=== PATIENT | male | born 1970 | race Caucasian/White ===

== ENCOUNTER 2022-04-05 16:05 | Outpatient (CLI) | payer OTHER, SELFPAY ==
[2022-04-05 09:03] LABS: Albumin* 4.8 g/dL (3.3-5.0); Chloride* 102 mmol/L (96-114)
[2022-04-05 09:04] LABS: Potassium* 4.6 mmol/L (3.6-5.1); Sodium* 139 mmol/L (135-149)
[2022-04-05 09:06] LABS: Aspartate Amino Transferase* 32 U/L (12-35); Bilirubin Total* 1.7 mg/dL (0.1-1.5); Blood Urea Nitrogen* 18 mg/dL (7-30); Carbon Dioxide* 30 mmol/L (20-32); Cholesterol* 160 mg/dL (90-199); Creatinine* 1.1 mg/dL (0.5-1.5); Estimated Glomerular Filt Rate 81 ml/min; Total Protein* 7.6 g/dL (6.0-8.3)
[2022-04-05 09:07] LABS: Alanine Aminotransferase* 38 U/L (4-50); Alkaline Phosphatase* 61 U/L (40-150); Calcium* 9.7 mg/dL (8.4-10.6); Glucose* 109 mg/dL (60-115); HDL Cholesterol* 40 mg/dL (>=40); LDL Cholesterol Calculated 96 mg/dL (<100); Triglycerides* 119 mg/dL (40-149)
[2022-04-05 09:34] LABS: PSA Screen* 1.58 ng/mL (0.10-4.00)
== END 2022-04-05 16:06 | disposition home or self-care (01) ==
PROVIDERS: PCP Internal Medicine; Visit Provider Internal Medicine
DX: Z00.00 Encounter for general adult medical examination without abnormal findings (principal); E78.5 Hyperlipidemia, unspecified; F41.9 Anxiety disorder, unspecified; Z13.1 Encounter for screening for diabetes mellitus; Z12.5 Encounter for screening for malignant neoplasm of prostate
CPT/HCPCS: 80053; 80061; 84153

== ENCOUNTER 2023-04-03 07:38 | Outpatient (CLI) | payer OTHER, SELFPAY | END 2023-04-03 07:39 | disposition home or self-care (01) | LOC: NFLDREF 04-04 08:23 | PROVIDERS: PCP Internal Medicine; Referring Provider Internal Medicine; Visit Provider Internal Medicine | DX: Z00.00 Encounter for general adult medical examination without abnormal findings (principal); E78.5 Hyperlipidemia, unspecified; F32.A Depression, unspecified; Z13.9 Encounter for screening, unspecified; Z12.5 Encounter for screening for malignant neoplasm of prostate | CPT/HCPCS: 80053; 80061; 84153 ==

== ENCOUNTER 2023-04-08 16:23 | Outpatient (CLI) | payer OTHER, SELFPAY | END 2023-04-08 16:24 | disposition home or self-care (01) | PROVIDERS: PCP Internal Medicine; Visit Provider Internal Medicine | DX: Z00.00 Encounter for general adult medical examination without abnormal findings (principal); R68.82 Decreased libido; F32.A Depression, unspecified | CPT/HCPCS: 84403; 84443 ==

== ENCOUNTER 2024-04-14 08:37 | Outpatient (CLI) | payer OTHER, SELFPAY | END 2024-04-14 08:38 | disposition home or self-care (01) | PROVIDERS: PCP Internal Medicine; Visit Provider Internal Medicine | DX: Z00.00 Encounter for general adult medical examination without abnormal findings (principal); E78.5 Hyperlipidemia, unspecified; N52.9 Male erectile dysfunction, unspecified; Z12.5 Encounter for screening for malignant neoplasm of prostate; Z13.9 Encounter for screening, unspecified | CPT/HCPCS: 80053; 80061; G0103 ==

== ENCOUNTER 2025-03-25 07:57 | Outpatient (CLI) | payer OTHER, SELFPAY ==
--- NOTE | 2025-03-25 09:15 | P.ANES_ITS ---
Anesthesia Charges Start Date/Time Anesthesia Start Date: 03/25/25 Anesthesia Start Time: 08:34 Stop Date/Time Anesthesia Stop Date: 03/25/25 Anesthesia Stop Time: 09:11 Coding CPT Codes CPT Codes: SONYA LWR INTST NDSC NOS - [id number] ([id number]) P2 - PATIENT W/MILD SYST DISEASE, P1 - NORMAL HEALTHY PATIENT, QK - PUBLIC TRANSIT BUS DRIVER 2-4 CNCRNT ANENoah PROC
--- NOTE | 2025-03-25 09:15 | W.ANESCHARGE ---
Anesthesia Charges Start Date/Time Anesthesia Start Date: 03/25/25 Anesthesia Start Time: 08:34 Stop Date/Time Anesthesia Stop Date: 03/25/25 Anesthesia Stop Time: 09:11 Coding CPT Codes CPT Codes: SONYA LWR INTST NDSC NOS - [id number] ([id number]) P2 - PATIENT W/MILD SYST DISEASE, P1 - NORMAL HEALTHY PATIENT, QK - SOCK MENDER 2-4 CNCRNT ANENoah PROC
--- NOTE | 2025-03-25 10:32 | P.ANES_ITS ---
Anesthesia Charges Start Date/Time Anesthesia Start Date: 03/25/25 Anesthesia Start Time: 08:34 Stop Date/Time Anesthesia Stop Date: 03/25/25 Anesthesia Stop Time: 09:11 Coding CPT Codes CPT Codes: SONYA LWR INTST NDSC NOS - [id number] ([id number]) P2 - PATIENT W/MILD SYST DISEASE, QK - TOWER HOIST OPERATOR 2-4 CNCRNT ANES PROC, QX - COAL YARD SUPERVISOR SVC W/ MD MED DIRECTION
--- NOTE | 2025-03-25 10:32 | W.ANESCHARGE ---
Anesthesia Charges Start Date/Time Anesthesia Start Date: 03/25/25 Anesthesia Start Time: 08:34 Stop Date/Time Anesthesia Stop Date: 03/25/25 Anesthesia Stop Time: 09:11 Coding CPT Codes CPT Codes: SONYA LWR INTST NDSC NOS - [id number] ([id number]) P2 - PATIENT W/MILD SYST DISEASE, QK - DISPATCHER MAINTENANCE 2-4 CNCRNT ANES PROC, QX - ADDICTION THERAPIST SVC W/ MD MED DIRECTION
== END 2025-03-25 07:58 | disposition home or self-care (01) ==
LOC: OP CLINIC 07:58
PROVIDERS: PCP Internal Medicine; Visit Provider Surgery
DX: Z12.11 Encounter for screening for malignant neoplasm of colon (principal); Z86.0100 Personal history of colon polyps, unspecified; D12.0 Benign neoplasm of cecum; D12.4 Benign neoplasm of descending colon; D12.8 Benign neoplasm of rectum
CPT/HCPCS: 00811; 00812; 45385; J2704

== ENCOUNTER 2025-04-29 09:01 | Outpatient (CLI) | payer OTHER, SELFPAY | END 2025-04-29 09:02 | disposition home or self-care (01) | PROVIDERS: PCP Internal Medicine; Visit Provider Internal Medicine | DX: N52.9 Male erectile dysfunction, unspecified (principal); E78.5 Hyperlipidemia, unspecified | CPT/HCPCS: 80053; 84270; 84402; 84403; 84443; G0103 ==